=== PATIENT | female | born 1945 | race Caucasian/White ===

== ENCOUNTER 2018-12-01 16:40 | Emergency (ER) | payer BC ==
--- NOTE | 2018-12-01 16:45 | PDOC ---
Attending Attestation - Resident Resident Name: AnselmoAubreyGreg - ED Attending Attestation I have performed the following: I have examined & evaluated the patient, The case was reviewed & discussed with the resident, I agree w/resident's findings & plan, Exceptions are as noted - HPI HPI: 12/01/18 17:21 73yo female presents ambulatory c/o back pain, L wrist pain, L hip pain. Pt states she had a mechanical fall last night - slip and fall in the parking lot on black ice States she landed on her L wrist and L side, bruising to L hip. Denies hitting her head. Denies LOC. Pt denies midline neck pain. Co paraspinal ttp. Pt denies paresthesias. No weakness. Pt c/o upper back pain, L rib pain, L wrist pain and L hip pain. Pt has been walking with a steady gait. Pt denies hematuria. No cp/ sob. No other complaitns. - Physicial Exam PE: 12/01/18 17:23 Gen: aaox3, nad heent: EOMI, MMM neck: no midline ttp, no stepoffs or deformities, paraspinal ttp b/l lower trap heart: +s1s2 reg, L ribs mild ttp, no pinpoint ttp lungs: cta b/l abd: soft, nt/nd +bs ext: no c/c/e, L hip lateral hip bruising and ttp, pelvis stable, ambulates with a steady gait, no vertebral stepoffs , parapsinal ttp, T4-5 ttp, L wrist ttp, radial pulses intact, no ttp over snuff box, sensation intact, brisk cap refill neuro: cn ii-xii grossly intact, no focal deficits, muscle strength 5/5, FROM of all extremities - Medical Decision Making 12/01/18 16:45 I, Dr. Camille Yee, DO, attest that this document has been prepared under my direction and personally reviewed by me in its entirety. I further attest, that it accurately reflects all work, treatment, procedures and medical decision -making performed by me. 12/01/18 18:06 a/p: 73yo female with mechanical slip and fall yesterday - no head injury or loc -c/o back and hip pain -mild rib ttp and wrist ttp -pt arrives ambulatory with a steady gait -will obtain xrays -no midline c spine ttp -will give tylenol and robaxin for pain -suspect MSK pain from the fall and bruising -no antiplts or anticoags -pt neuro intact -ua to eval for blood -will monitor and reassess 12/01/18 18:07 ua negative 12/01/18 18:12 wrist xray shows degernative changes to thumb 12/01/18 18:24 no acute rib fx visualized, degenerative changes to lumbar spine, poss compression fx to T4 on thoracic spine call placed to rads 12/01/18 18:54 repeat eval: feels better no midline c spine ttp 12/01/18 18:55 no acute fx on pelvis/hip
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
[2018-12-01 16:53] VITALS: BP 177/73; PULSE 69; TEMP 97.9; BMI 22.4
[2018-12-01] MEDS ORDERED: DIPHTH,PERTUSS(ACELL),TET 0.5 ML DISP.SYRIN IM ONE ×2 (17:09→17:15)
[2018-12-01] MEDS ORDERED: FAMOTIDINE 20 MG TABLET PO ONE (17:10)
[2018-12-01] MEDS ORDERED: FAMOTIDINE 20 MG TABLET ONE (17:14)
[2018-12-01] MEDS ORDERED: METHOCARBAMOL 500 MG TABLET PO ONE (17:18)
[2018-12-01] MEDS ORDERED: ACETAMINOPHEN 325 MG TABLET (FP) PO ONE (17:18)
[2018-12-01] MEDS ORDERED: ACETAMINOPHEN 325 MG TABLET (FP) ONE (17:21)
[2018-12-01] MEDS ORDERED: METHOCARBAMOL 500 MG TABLET ONE (17:21)
[2018-12-01 17:37] LABS: URINE APPEARANCE Clear; URINE BILIRUBIN Negative (NEGATIVE); URINE COLOR Yellow; URINE GLUCOSE (UA) Negative (NEGATIVE); URINE KETONE Negative (NEGATIVE); URINE LEUK ESTERASE Negative (NEGATIVE); URINE NITRITE Negative (NEGATIVE); URINE PROTEIN Negative (NEGATIVE); URINE UROBILINOGEN 0.2 (0.2-1.0)
--- NOTE | 2018-12-01 19:27 | PDOC ---
*Physical Exam - Vital Signs Last Vital Signs Temp Pulse Resp BP Pulse Ox 97.9 F 69 18 177/73 H 99 12/01/18 16:45 12/01/18 16:45 12/01/18 16:45 12/01/18 16:45 12/01/18 16:45 ED Treatment Course - ADDITIONAL ORDERS Additional order review: Laboratory Results 12/01/18 17:25 Urine Color Yellow Urine Appearance Clear Urine pH 6.0 Ur Specific [place] <= 1.005 L Urine Protein Negative Urine Glucose (UA) Negative Urine Ketones Negative Urine Blood Negative Urine Nitrite Negative Urine Bilirubin Negative Urine Urobilinogen 0.2 Ur Leukocyte Esterase Negative - Medications Given in the ED: ED Medications Discontinued Medications Generic Name Dose Route Start Last Admin Trade Name Freq PRN Reason Stop Dose Admin Acetaminophen 650 mg 12/01/18 17:18 12/01/18 17:25 Tylenol - PO 12/01/18 17:19 650 mg ONCE ONE Administration Diphtheria/Tetanus/Acell Pertussis 0.5 ml 12/01/18 17:09 12/01/18 18:05 Boostrix - IM 12/01/18 17:10 0.5 ml .ONCE ONE Administration Famotidine 20 mg 12/01/18 17:10 12/01/18 17:28 Pepcid - PO 12/01/18 17:11 20 mg ONCE ONE Administration Methocarbamol 500 mg 12/01/18 17:18 12/01/18 17:30 Robaxin - PO 12/01/18 17:19 500 mg ONCE ONE Administration Progress Note - Progress Note Progress Note: Care of this patient was transferred to ct from Dr. Yee at 1900 hrs. Patient is a 73-year-old female who slipped and fell on the ice. Patient's x-rays were negative for any acute pathology however it does appear that there is a compression fracture mid thoracic spine that is of indeterminate age. Patient discharged home and well follow-up with her primary care doctor or an orthopedist. *DC/Admit/Observation/Transfer Diagnosis at time of Disposition: Fall Qualifiers: Encounter type: initial encounter Qualified Code(s): W19.XXXA - Unspecified fall, initial encounter Compression fx, thoracic spine Qualifiers: Encounter type: initial encounter Fracture type: closed Qualified Code(s): S22.000A - Wedge compression fracture of unspecified thoracic vertebra, initial encounter for closed fracture - Discharge Dispostion Condition at time of disposition: Stable - Referrals Referrals: Kevyn Dubon [Primary Care Provider] - - Patient Instructions Printed Discharge Instructions: How to Prevent Falls Additional Instructions: Please return to the emergency department with any new or worsening symptoms or concerns. Please follow up with your primary care physician within 72 hours. For the pain U can take Tylenol 2 tablets every 4-6 hours as needed. - Post Discharge Activity
== END 2018-12-01 20:05 | disposition home or self-care (01) ==
LOC: FER 16:40
PROC: 3E0234Z Introduction of Serum, Toxoid and Vaccine into Muscle, Percutaneous Approach (ICD-10-PCS; principal; 2018-12-01)
DX: M25.552 Pain in left hip (principal); W00.0XXA Fall on same level due to ice and snow, initial encounter; Y93.89 Activity, other specified; Y92.89 Other specified places as the place of occurrence of the external cause; E03.9 Hypothyroidism, unspecified; K21.9 Gastro-esophageal reflux disease without esophagitis; J45.909 Unspecified asthma, uncomplicated
CPT/HCPCS: 71101-TC-LT-FY; 72070-TC-FY; 72100-TC-FY; 73110-TC-LT-FY; 73130-TC-LT-FY; 73523-TC-FY; 81003; 90471; 90715; 99283-25